=== PATIENT | male | born 1990 | race Hispanic/Latino ===

== ENCOUNTER 2017-08-28 12:16 | Emergency (ER) | payer SELFPAY ==
--- NOTE | 2017-08-28 12:52 | ED PDOC ---
HPI: General Adult Time Seen by Provider: 08/28/17 12:50 Chief Complaint (Nursing): Foreign Body Chief Complaint (Provider): foreign body History Per: Patient (26 y/o male here for evaluation of right hand injury/left leg injury that occurred when he accidentally shot self with nailgun. Patient states he grazed right hand and nail lodged in left calf.) Past Medical History Reviewed: Historical Data, Nursing Documentation, Vital Signs Vital Signs: Last Vital Signs Temp 98.1 F 08/28/17 19:50 Pulse 71 08/28/17 19:50 Resp 17 08/28/17 19:50 BP 129/78 08/28/17 19:50 Pulse Ox 99 08/30/17 16:44 - Family History Family History: States: No Known Family Hx - Home Medications Home Medications: Ambulatory Orders Medication Instructions Recorded Cephalexin [Keflex] 500 mg PO QID #28 capsule 08/28/17 - Allergies Allergies/Adverse Reactions: Allergies Allergy/AdvReac Type Severity Reaction Status Date / Time No Known Allergies Allergy Verified 08/28/17 12:25 Review of Systems ROS Statement: Except As Marked, All Systems Reviewed And Found Negative Musculoskeletal: Positive for: Leg Pain Physical Exam - Reviewed Nursing Documentation Reviewed: Yes Vital Signs Reviewed: Yes - Physical Exam Appears: Positive for: Well, Non-toxic, No Acute Distress Head Exam: Positive for: ATRAUMATIC, NORMAL INSPECTION, NORMOCEPHALIC Skin: Positive for: Normal Color, Warm, DRY Eye Exam: Positive for: EOMI, Normal appearance, PERRL ENT: Positive for: Normal ENT Inspection Neck: Positive for: Normal, Painless ROM Cardiovascular/Chest: Positive for: Regular Rate, Rhythm Respiratory: Positive for: CNT, Normal Breath Sounds Gastrointestinal/Abdominal: Positive for: Normal Exam, Bowel Sounds, Soft Back: Positive for: Normal Inspection Extremity: Positive for: Normal ROM, Tenderness (swelling noted left calf ? foreign body noted.), Other (small 4 mm laceration noted distal phalanx fourth digit right hand. Patient able to flex/extend and PIP/DIP) Neurologic/Psych: Positive for: Alert, Oriented - Laboratory Results Result Diagrams: 08/28/17 13:22 08/28/17 13:22 - ECG O2 Sat by Pulse Oximetry: 99 - Progress ED Course And Treament: Ancef 1 gm iv x 1 dose tdap 0.5 ml IM x 1 dose xry of hand: foreign body noted on xry distal tip of phalanx index finger xry of tib-fib: foreign body noted on xry medial aspect of tib fib; no fx noted Leg foreign body: Seen by vice president network development /Dr New in ED for evaluation of foreign body. Foreign body removed by Dr New. Advised dressing change and f/u for wound evaluation. Will d/c with Keflex. Hand foreign body: Verbal consent prior to procedure. Lidocaine 1% 2 cc used for digital block in ED. Unsuccessful attempt made to remove foreign body of hand in ED by JESSI and Call placed to Dr. Arriola for hand consultation. Repeat xry with paper clip for assistance of marking location of foreign body Verbal consent prior to 2nd attempt. Lidocaine 1% 2cc ussed for digital block. small incision made approx 1 cm and Repeat attempt made with foreign body removed successfully. Repeat xry post procedure: no foreign body Wound irrigated profusely. Incision repaired with two sutures as documented in procedures. Morphine 4mg iv x 1 dose/zofran 4 mg iv x 1 dose for pain management. Disposition - Clinical Impression Clinical Impression: Foreign body (FB) in soft tissue - Patient ED Disposition Is Patient to be Admitted: No - Disposition Referrals: Nik New MD [Staff Provider] - Channing Arriola MD [Medical Doctor] - Disposition: Routine/Home Disposition Time: 19:00 Condition: GOOD Additional Instructions: return to ED in 2 days for wound check. REMOVE SUTURE IN 8-10 DAYS F/U WITH HAND SURGEON THIS WEEK. Prescriptions: Cephalexin [Keflex] 500 mg PO QID #28 capsule Instructions: Soft Tissue Foreign Body (ED) Forms: [employer] ([employer]), [facility] ED School/Work Excuse Procedure: Wound Repair - Time Performed Time Performed: 18:15 - Time Out Time Out: Site verified - Consent Obtained Consent obtained: Verbal - Performed by Performed by: Mid-level Provider - Indications Indication(s):: Laceration - Location Location:: Hand Finger:: Right, Middle Shape:: Linear Dimensions Length cm: 1.0cm Depth:: Epidermis - Anesthetic Technique Anesthetic Technique: Regional block - Irrigated Irrigated with ml of normal saline: 250ml - Complexity Complexity:: Simple (one layer) - Wound repair method Sutures:: # (two), Size (4-0), Type (nylon), Technique (interrupted.)
[2017-08-28] MEDS ORDERED: ceFAZolin IV 1 gm in Dextrose 1 GM/50 ML BAG IVPB ONE ×2 (13:00→13:55)
[2017-08-28 13:29] LABS: BASO % 0.5 % (0.0-2.0); EOS # 0.1 K/uL (0.0-0.7); EOS % 1.9 % (0.0-4.0); HEMATOCRIT 41.7 % (35.0-51.0); LYMPH # 2.4 K/uL (1.0-4.3); LYMPH % 32.2 % (20.0-40.0); MEAN CELL VOLUME 83.1 fl (80.0-94.0); MEAN CORPUSCULAR HEMOGLOBIN 29.8 pg (27.0-31.0); MEAN CORPUSCULAR HGB CONC 35.9 g/dL (33.0-37.0); MEAN PLATELET VOLUME 7.7 fl (7.2-11.7); MONO # 0.5 K/uL (0.0-0.8); MONO % 6.5 % (0.0-10.0); NEUT # 4.4 K/uL (1.8-7.0); NEUT % 58.9 % (50.0-75.0); NRBC % 0.1 % (0.0-0.0); RED CELL DISTRIBUTION WIDTH 12.1 % (11.5-14.5); WHITE BLOOD COUNT 7.4 K/uL (4.8-10.8)
[2017-08-28 13:40] LABS: PARTIAL THROMBOPLASTIN TIME 27.9 Seconds (25.6-37.1)
[2017-08-28 13:41] LABS: BLOOD UREA NITROGEN 19 mg/dl (9-20); CALCIUM 9.1 mg/dL (8.4-10.2); CARBON DIOXIDE 26 mmol/L (22-30); CHLORIDE 104 mmol/L (98-107); GFR AFRICAN-AMERICAN > 60; GLUCOSE,RANDOM 92 mg/dL (75-110); POTASSIUM 3.9 MMOL/L (3.6-5.0); SODIUM 139 mmol/l (132-148)
[2017-08-28] MEDS ORDERED: Lidocaine 2% Inj (20ml) INFIL ONE (13:47)
[2017-08-28] MEDS ORDERED: Povidone Iodine Topical 10% Sol TOP ONE (13:47)
[2017-08-28] MEDS ORDERED: Povidone Iodine Topical 10% Sol ONE (13:48)
[2017-08-28] MEDS ORDERED: Lidocaine 2% Inj (20ml) ONE ×2 (13:48→17:20)
--- NOTE | 2017-08-28 14:20 | RAD ---
PROCEDURE: Radiographs of the left tibia and fibula. HISTORY: foreign body COMPARISON: None available. TECHNIQUE: Frontal and lateral views obtained. FINDINGS: BONES: No fracture or destructive lesion. JOINT SPACES: Unremarkable. OTHER FINDINGS: There is a metallic radiopaque foreign body seen in the medial soft tissues of the calf, possibly subcutaneous. IMPRESSION: No fracture. Metallic radiopaque foreign body in the medial soft tissues of the left calf.
--- NOTE | 2017-08-28 14:22 | RAD ---
PROCEDURE: Right Hand Radiographs. HISTORY: hand injury COMPARISON: None. FINDINGS: BONES: No acute fracture. JOINTS: Normal. No osteoarthritic changes. SOFT TISSUES: There is a metallic radiopaque foreign body seen in the soft tissues immediately distal to the tip of the 3rd distal phalanx. OTHER FINDINGS: None. IMPRESSION: Metallic radiopaque foreign body distal to the tip of the 3rd distal phalanx.
--- NOTE | 2017-08-28 17:57 | CP.PCM.CON ---
History of Present Illness - History of Present Illness History of Present Illness: General surgery consult note for Dr. Lukasz He, PGY-1 Pt S & E at bedside with attending. 26M w/no sig PMH consulted for foreign body of Left lower leg x 1 day. Pt reports that he was using a nail gun at approximately noon at work when the gun misfired and ricocheted off of a surface with subsequent injury to distal middle digit of Right hand and proximal medial left leg. Pt reports immediate pain to area and subsequent visit to ED. Pt notes ability to feel foreign body in Left lower leg upon ambulation and palpation. Denies F & C, problems with ambulation, severe bleeding from entry point, numbness or tingling of lower extremities, alterations in motor capacity, or other issues. PMH: Denies PSH: Denies All: NKDA SH: Admits to occasional ETOH use and rare marijuana use, denies tobacco or other illicit drug use Review of Systems - Review of Systems All systems: reviewed and no additional remarkable complaints except - Constitutional Constitutional: absent: Chills, Fever - EENT Eyes: absent: Change in Vision Nose/Mouth/Throat: absent: Sore Throat - Cardiovascular Cardiovascular: absent: Chest Pain - Gastrointestinal Gastrointestinal: absent: Abdominal Pain, Nausea, Vomiting - Musculoskeletal Musculoskeletal: absent: Muscle Weakness, Numbness, Radiating Pain into Limb, Tingling - Integumentary Integumentary: New Lesions, Skin Pain, Wounds. absent: Swelling, Unusual Bruising - Neurological Neurological: absent: Dizziness - Psychiatric Psychiatric: absent: Change in Appetite Meds Allergies/Adverse Reactions: Allergies Allergy/AdvReac Type Severity Reaction Status Date / Time No Known Allergies Allergy Verified 08/28/17 12:25 Physical Exam - Constitutional Appears: Non-toxic, No Acute Distress - Head Exam Head Exam: ATRAUMATIC, NORMAL INSPECTION, NORMOCEPHALIC - Eye Exam Eye Exam: EOMI, Normal appearance - ENT Exam ENT Exam: Mucous Membranes Moist, Normal Exam - Neck Exam Neck exam: Positive for: Full Rom, Normal Inspection - Respiratory Exam Respiratory Exam: NORMAL BREATHING PATTERN - Cardiovascular Exam Cardiovascular Exam: REGULAR RHYTHM, +S1, +S2 - Extremities Exam Extremities exam: Positive for: tenderness (Left lower medial proximal leg, Middle digit of right hand) Additional comments: small circular skin opening with scant blood, palpable hard mass approximately 2cm from skin opening- firm, mobile under skin - Neurological Exam Neurological exam: Alert, CN II-XII Intact, Oriented x3 - Psychiatric Exam Psychiatric exam: Normal Affect, Normal Mood - Skin Skin Exam: Dry, Normal Color, Warm Additional comments: Right middle digit with distal aspect incised- bloody. See extremity exam for left lower leg findings. Results - Vital Signs Recent Vital Signs: Last Vital Signs Temp 98.2 F 08/28/17 12:25 Pulse 97 H 08/28/17 12:25 Resp 16 08/28/17 12:25 BP 147/97 H 08/28/17 12:25 Pulse Ox 99 08/28/17 16:29 - Labs Result Diagrams: 08/28/17 13:22 08/28/17 13:22 Labs: Laboratory Results - last 24 hr 08/28/17 08/28/17 08/28/17 13:22 13:22 13:22 WBC 7.4 RBC 5.02 Hgb 15.0 Hct 41.7 MCV 83.1 MCH 29.8 MCHC 35.9 RDW 12.1 Plt Count 167 MPV 7.7 Neut % (Auto) 58.9 Lymph % (Auto) 32.2 Traverse % (Auto) 6.5 Eos % (Auto) 1.9 Baso % (Auto) 0.5 Neut # 4.4 Lymph # 2.4 Traverse # 0.5 Eos # 0.1 Baso # 0.0 PT 11.5 INR 1.0 APTT 27.9 Sodium 139 Potassium 3.9 Chloride 104 Carbon Dioxide 26 Anion Gap 13 BUN 19 Creatinine 0.9 Est GFR ( Amer) > 60 Est GFR (Non-Af Amer) > 60 Random Glucose 92 Calcium 9.1 Assessment & Plan - Assessment and Plan (Free Text) Assessment: 26M w/foreign body of Left lower leg, hemodynamically stable Plan: Foreign body removed from left lower leg Tetanus shot Abx - Keflex Ok to d/c home with dressing changes PRN MEG attending Ying, PGY-1 - Date & Time Date: 08/28/17 Time: 16:00 Procedures - Foreign Body Removal Consent Obtained: verbal consent Time Out Performed: Yes Site: left, lower extremity Description of foreign body: other (nail head) Sedation/Analgesia: none Technique: removal with forceps, incision made to facilitate removal Confirmed by:: direct visualization, palpation Complications:: None Post-procedure exam: Awake, alert, Normal BP, Normal HR, Normal O2 sat Neurovascular: Normal distal pulse, Distal light touch sensation intact, Distal motor function normal
[2017-08-28] MEDS ORDERED: Morphine 4 MG/ML VIAL ONE (18:31)
[2017-08-28 19:52] VITALS: BP 129/78; PULSE 71; RESP 17; TEMP 98.1
--- NOTE | 2017-08-29 11:19 | RAD ---
PROCEDURE: Right middle finger radiographs. HISTORY: to evaluate placement of foreign body COMPARISON: None. TECHNIQUE: AP radiograph of the right hand, as well as spot oblique and lateral images of right middle finger were obtained. FINDINGS: RIGHT MIDDLE FINGER: The current study reveals 2 cylindrical radiopaque foreign bodies within the palmar soft tissues at the level of the distal tuft distal phalanx 3rd finger. . . The largest on measures approximately 6.25 mm and is more superficial. The smaller radiopaque density measures approximately 3.7 mm and nearly abuts the distal tuft distal phalanx 3rd finger. Soft tissue swelling and a small amount subcutaneous air present. JOINTS: Normal. SOFT TISSUES: Normal. OTHER FINDINGS: None. IMPRESSION: There are 2 radiopaque/ metallic linear densities within the soft tissues distal 3rd finger as described.
--- NOTE | 2017-08-29 11:23 | RAD ---
PROCEDURE: Right middle finger radiographs dated 08/28/2017 at 1835 hours. HISTORY: r/o foreign body COMPARISON: Comparison made with prior study dated 08/28/2017 at 1639 hours TECHNIQUE: AP radiograph of the right hand, as well as spot oblique and lateral images of right middle finger were obtained. FINDINGS: RIGHT MIDDLE FINGER: 2 previously noted metallic foreign bodies within the soft tissues distal tip distal 3rd finger have been removed. . There is mild surrounding soft tissue swelling. JOINTS: Normal. SOFT TISSUES: As above OTHER FINDINGS: None. IMPRESSION: Interval removal previously noted metallic foreign bodies within the soft tissues distal right 3rd finger with mild surrounding soft tissue swelling.
[2017-08-30 16:44] VITALS: O2SAT 99
== END 2017-08-28 19:52 | disposition home or self-care (01) ==
LOC: H.ER 12:16
DX: M79.5 Residual foreign body in soft tissue (principal); W29.4XXA Contact with nail gun, initial encounter
CPT/HCPCS: 73130; 73140; 73590; 80048; 85025; 85610; 85730; 90471; 90715; 96374; 96375; 99284; J0690; J2270; J2405